=== PATIENT | male | born 1975 | race Caucasian/White ===

== ENCOUNTER 2024-12-11 21:56 | Emergency (ER) | payer BC, OTHER ==
[~2024-12-11] VITALS: Ht 188 cm; Wt 95.3 kg
[2024-12-11] MEDS ORDERED: LIDOCAINE HCL 2% 20 ML VIAL ONE (22:12)
[2024-12-11] MEDS ORDERED: SODIUM BICARBONATE 4.2 % (NEUT) 5 ML VIAL ONE (22:12)
[2024-12-11] MEDS ORDERED: TDAP DIPH,PERTUSS,TET VAC/PF 0.5 ML DISP.SYRIN IM ONE (22:13)
[2024-12-11] MEDS: LIDOCAINE HCL 2% 20 ML VIAL IJ ONE (22:24)
[2024-12-11] MEDS: SODIUM BICARBONATE 4.2 % (NEUT) 5 ML VIAL TP ONE (22:25)
[2024-12-11] MEDS: TDAP DIPH,PERTUSS,TET VAC/PF 0.5 ML DISP.SYRIN IM ONE (22:25)
[2024-12-11] MEDS ORDERED: CEPH500T PO (22:27)
[2024-12-11 22:39] VITALS: BP 130/67; O2SAT 100
== END 2024-12-11 22:42 | disposition home or self-care (01) ==
LOC: ER 22:00
DX: S60.454A Superficial foreign body of right ring finger, initial encounter (principal); W22.8XXA Striking against or struck by other objects, initial encounter; Y93.89 Activity, other specified; Y92.89 Other specified places as the place of occurrence of the external cause; Y99.8 Other external cause status
CPT/HCPCS: 64450; 99284; 90715; 90471; J3490 ×2; A4606; A4663